=== PATIENT | female | born 1990 | race Caucasian/White ===

== ENCOUNTER 2021-10-11 04:20 | Inpatient (IN) | payer OTHER ==
[~2021-10-11] VITALS: Ht 175.3 cm; Wt 81.8 kg
[2021-10-11] VITALS (22 sets, daily range): BP systolic 97–133; BP diastolic 55–83; PULSE 71–108; TEMP 97.5–98.6
--- NOTE | 2021-10-11 04:38 | NUR ---
0438- 31 YEAR OLD, , 40.3 WGA. PT ARRIVES TO OB FLOOR, AMBULATORY FROM HOME, ACCOMPANIED BY SPOUSE, LORRAINE. ESCORTED TO ROOM LDR 3. PT C/O LEAKING OF FLUID AND CTX EVERY 5 MINUTES. PT REPORTS SHE THINK HER WATER BROKE AROUND 0230. REPORTS +FM AND DENIES ANY VB. UPON CERVICAL CHECK, PT APPEARS GROSSLY RUPTURED WITH CLEAR FLUID AND DILATED 4-5 M/80/-2 AND VERTEX. POC D/W PT AND SPOUSE. 0450- UP TO BR 0506- DR. ASENCIO CALLED AND ORDERS REC'D TO ADMIT PT FOR LABOR. 0515- CONSENTS SIGNED AND D/W PT. 0532- UP TO BR 0548- THIS RN ATTEMPTED IV X2, UNSUCCESSFUL. ABLE TO COLLECT LABS AND SENT. 0600- LT HAND 18G IV STARTED. CHERELLE POSE AND IV BOLUS INFUSION.
[2021-10-11] MEDS ORDERED: EUTHYROX50 MCG PO (04:56)
[2021-10-11] MEDS ORDERED: PRENATAL TABLET PO (04:56)
[2021-10-11] MEDS ORDERED: PROFERRIN ES12 MG PO (04:57)
--- NOTE | 2021-10-11 06:15 | NUR ---
Bedside report received from Destiny MCFARLANE. Patient resting and has no needs at this time. Plan of care discussed. 0620: Patient requesting epidural and C. Omid [employer] PROCESSING CLERK notified. 0650: Patient is standing at bedside. 0709: Patient is sitting up for epidural and C.Omid [employer] PROCESSING CLERK at bedside. 0711: Single dose given and patient tolerates well. Patient repositioned and safety precautions/plan of care discussed.
[2021-10-11 06:22] LABS: BASO # 0.1 K/mm3 (0.0-0.2); BASO % 0.7 % (0.0-2.0); EOS # 0.1 K/mm3 (0.0-0.7); EOS % 1.1 % (0.0-4.0); GRAN # 7.5 K/mm3 (1.4-6.5); GRAN % 71.2 % (42.2-75.2); HEMATOCRIT 39.4 % (37.0-47.0); HEMOGLOBIN 13.3 g/dl (12.5-16.0); LYMPH % 18.8 % (20.0-51.0); MEAN CELL VOLUME 92 fl (80.0-100.0); MEAN CORPUSCULAR HEMOGLOBIN 31 pg (27-31); MEAN CORPUSCULAR HGB CONC 34 g/dl (33.0-37.0); MEAN PLATELET VOLUME 9.1 fl (7.4-10.4); MONO # 0.8 K/mm3 (0.1-0.6); MONO % 7.3 % (1.7-9.3); PLATELET COUNT 242 K/mm3 (130-400); RED BLOOD COUNT 4.29 M/mm3 (4.10-5.30); REDCELL DISTRIBUTION WIDTH-CV 12.8 % (11.5-14.5)
--- NOTE | 2021-10-11 07:50 | NUR ---
Badillo catheter placed and patient tolerates well. SVE-/-2. Patient right lateral with left leg resting. 0800: Dr. Nguyen at bedside and assessing patient and FHR strip. SVE-/-2. Dr. Nguyen orders to start pitocin and patient agrees with plan.
--- NOTE | 2021-10-11 08:05 | NUR ---
FHR baseline 125bpm and decreasing intermittently to 100-115bpm, patient left lateral. 0830: Dr. Nguyen at nurses station and reviewing FHR strip. 0910: SVE per physician /0. 0915: Recurrent early declerations noted. 0925: Dr. Nguyen at bedside and SVE-/+2 Patient set up for vaginal delivery.
--- NOTE | 2021-10-11 09:33 | NUR ---
0933: Patient set up for vaginal delivery and begins to push with contractions. 0936: Spontaneous vaginal delivery of viable male- head followed by body. to patients abdomen and E. González RN assumes care of . Cord clamped x2 by physician and cut by FOB. Cord blood obtained. 0940: Spontaneous delivery of placenta. Pitocin bolus started per protocol. Fundal massage done/firm/bleeding WNL. Dr. Nguyen repairs laceration. Pericare done, patient repositioned, ice pack to perineum. Plan of care discussed.
--- NOTE | 2021-10-11 18:30 | NUR ---
Report recieved. Resting in bed eating. Updated whiteboard and reviewed POC.
[2021-10-12 01:30] VITALS: BP 99/64; PULSE 85; TEMP 97.7
[2021-10-12 07:45] VITALS: BP 98/66; PULSE 90; TEMP 97.7
[2021-10-12] MEDS ORDERED: MOTRIN 800800 MG/TAB PO (07:58)
--- NOTE | 2021-10-12 16:18 | NUR ---
1545DISCHARGE INSTRUCTIONS REVIEWED WITH PATIENT. PATIENT VERBALIZED UNDERSTANDING. WILL NOTIFY THIS RN WHEN READY TO LEAVE.
--- NOTE | 2021-10-12 16:36 | NUR ---
1630ALL PERSONAL BELONGINGS GATHERED FROM PATIENT ROOM. PATIENT LEFT AMBULATORY AND IN NO APPARENT DISTRESS. PATIENT ACCOMPANIED BY SPOUSE AND THIS RN.
== END 2021-10-12 16:30 | disposition home or self-care (01) | DRG 806 ==
LOC: LDRO 04:20 → LDR 05:02 → OB 05:02
PROVIDERS: Obstetrics & Gynecology; ADMIT Obstetrics & Gynecology
PROC: 10E0XZZ Delivery of Products of Conception, External Approach (ICD-10-PCS; principal; 2021-10-11)
PROC: 0UQMXZZ Repair Vulva, External Approach (ICD-10-PCS; 2021-10-11)
PROC: 0UQGXZZ Repair Vagina, External Approach (ICD-10-PCS; 2021-10-11)
DX: O99.02 Anemia complicating childbirth (principal); O71.4 Obstetric high vaginal laceration alone; Z37.0 Single live birth; O99.284 Endocrine, nutritional and metabolic diseases complicating childbirth; E03.9 Hypothyroidism, unspecified; D64.9 Anemia, unspecified; O76 Abnormality in fetal heart rate and rhythm complicating labor and delivery; O62.1 Secondary uterine inertia; O71.82 Other specified trauma to perineum and vulva; Z3A.40 40 weeks gestation of pregnancy; Z23 Encounter for immunization
CPT/HCPCS: J2590; J7120